=== PATIENT | female | born 1950 | race Caucasian/White ===

== ENCOUNTER → 2016-05-17 | Outpatient (CLI) | payer MEDICARE, OTHER | LOC: MAMO 05-12 14:20 | DX: Z12.31 Encounter for screening mammogram for malignant neoplasm of breast (principal); Z88.0 Allergy status to penicillin; Z88.8 Allergy status to other drugs, medicaments and biological substances | CPT/HCPCS: G0202 ==

== ENCOUNTER → 2016-07-08 | Outpatient (CLI) | payer MEDICARE, OTHER | LOC: MAMO 14:30 | DX: R92.8 Other abnormal and inconclusive findings on diagnostic imaging of breast (principal); Z53.9 Procedure and treatment not carried out, unspecified reason ==

== ENCOUNTER → 2020-11-25 | Outpatient (CLI) | payer MEDICARE, OTHER ==
[~2020-11-25] MED LIST: MACROBID 100 M100 MG PO
== END ==
LOC: HEART 5 13:25
DX: R00.2 Palpitations (principal); R06.02 Shortness of breath; I70.0 Atherosclerosis of aorta; I51.7 Cardiomegaly; R94.39 Abnormal result of other cardiovascular function study
CPT/HCPCS: 93306

== ENCOUNTER → 2020-12-25 | Outpatient (CLI) | payer MEDICARE, OTHER | LOC: HEART 5 08:18 | DX: I20.9 Angina pectoris, unspecified (principal); I47.1 Supraventricular tachycardia; R06.02 Shortness of breath; R94.39 Abnormal result of other cardiovascular function study | CPT/HCPCS: 78452; A9502; J2785 ==

== ENCOUNTER → 2021-01-16 | Outpatient (CLI) | payer MEDICARE, OTHER | LOC: CT 12-26 09:30 | DX: R07.9 Chest pain, unspecified (principal); R09.89 Other specified symptoms and signs involving the circulatory and respiratory systems; R79.89 Other specified abnormal findings of blood chemistry; I77.819 Aortic ectasia, unspecified site | CPT/HCPCS: 71275; Q9967 ==

== ENCOUNTER → 2021-06-04 | Outpatient (CLI) | payer MEDICARE, OTHER | LOC: RAD 12:53 | DX: M54.50 Low back pain, unspecified (principal); G89.29 Other chronic pain; M47.816 Spondylosis without myelopathy or radiculopathy, lumbar region | CPT/HCPCS: 72110 ==

== ENCOUNTER → 2021-06-24 | Outpatient (CLI) | payer MEDICARE, OTHER | LOC: MAMO 14:33 | DX: Z12.31 Encounter for screening mammogram for malignant neoplasm of breast (principal) | CPT/HCPCS: 77063; 77067 ==

== ENCOUNTER → 2021-07-09 | Outpatient (CLI) | payer MEDICARE, OTHER | LOC: RAD 13:29 | DX: M25.562 Pain in left knee (principal); M17.12 Unilateral primary osteoarthritis, left knee | CPT/HCPCS: 73564 ==

== ENCOUNTER → 2021-08-25 | Outpatient (CLI) | payer MEDICARE, OTHER ==
[2021-08-25 12:05] LABS: HEMOGLOBIN 13.7 gm/dl (12.3-15.3); RED BLOOD COUNT 4.25 M/UL (4.00-5.10); WHITE BLOOD COUNT 10.1 K/UL (4.5-11.0)
== END ==
LOC: LAB 11:07
PROVIDERS: Family Medicine
DX: E78.2 Mixed hyperlipidemia (principal); M25.521 Pain in right elbow; E55.9 Vitamin D deficiency, unspecified; Z79.899 Other long term (current) drug therapy
CPT/HCPCS: 36415; 73080; 80053; 80061; 83735; 85027